=== PATIENT | female | born 1990 | race Caucasian/White ===

== ENCOUNTER 2016-11-02 13:11 | Emergency (ER) | payer BC ==
--- NOTE | 2016-11-02 13:36 | UC ---
Complaint Female HPI - HPI Summary HPI Summary: right side low back pain believes she has a kidney stone---her Tena Mcqueenr told here if pain returns to follow at urgent care or Ed for imagining - History Of Current Complaint Chief Complaint: UCGU Stated Complaint: RT LOWER BACK -KIDNEY? Time Seen by Provider: 11/02/16 13:35 Hx Obtained From: Patient ?: No Onset/Duration: Sudden Onset, Lasting Days - 2, Still Present Timing: Constant Severity Initially: Moderate Severity Currently: Moderate Pain Intensity: 6 Pain Scale Used: 0-10 Numeric Character: Dull, Colicy Aggravating Factor(s): Nothing Alleviating Factor(s): Nothing Associated Signs And Symptoms: Positive: Back Pain - Allergies/Home Medications Allergies/Adverse Reactions: Allergies Allergy/AdvReac Type Severity Reaction Status Date / Time Acetaminophen [From Percocet] Allergy Anaphylatic Verified 11/02/16 13:39 Shock Amoxicillin Allergy Vomiting Verified 11/02/16 13:39 Azithromycin Allergy Hives/Diff. Verified 11/02/16 13:39 Breathing/I tching Nitrofurantoin Allergy Vomiting Verified 11/02/16 13:39 [From Macrobid] Oxycodone [From Percocet] Allergy Anaphylatic Verified 11/02/16 13:39 Shock Penicillins [PCN] Allergy Vomiting Verified 11/02/16 13:39 Promethazine [From Phenergan] Allergy Hallucinati Verified 11/02/16 13:39 ons Sulfa Antibiotics Allergy Rash Verified 11/02/16 13:39 Home Medications: Home Medications ALPRAZolam TAB* [Xanax TAB*] 1 tab PO BID PRN 11/02/16 [History Confirmed ] Ciprofloxacin TAB* [Cipro 500 MG TAB*] 500 mg PO BID 11/02/16 [History Confirmed 11/02/16] Sertraline* [Zoloft*] 50 mg PO DAILY 11/02/16 [History Confirmed 11/02/16] PMH/Surg Hx/FS Hx/Imm Hx Previously Healthy: Yes GI/ History: Kidney Stones - Family History Known Family History: Positive: None Family History: no cardiovascular issues reported in family lineage - Social History Occupation: Employed Full-time Lives: With Family Alcohol Use: None Substance Use Type: None Smoking Status (MU): Never Smoked Tobacco Review of Systems Constitutional: Negative Skin: Negative Eyes: Negative ENT: Negative Respiratory: Negative Cardiovascular: Negative Gastrointestinal: Negative Genitourinary: Negative Motor: Negative Neurovascular: Negative Musculoskeletal: Negative, Arthralgia - right flank pain Neurological: Negative Psychological: Negative All Other Systems Reviewed And Are Negative: Yes Physical Exam Triage Information Reviewed: Yes Appearance: Well-Appearing, No Pain Distress, Well-Nourished Vital Signs: Initial Vital Signs Temp 98.0 F 11/02/16 13:29 Pulse 75 11/02/16 13:29 Resp 18 11/02/16 13:29 BP 123/65 11/02/16 13:29 Pulse Ox 100 11/02/16 13:29 Vital Signs Reviewed: Yes Eye Exam: Normal Eyes: Positive: Conjunctiva Clear ENT Exam: Normal ENT: Positive: Normal ENT inspection, Hearing grossly normal. Negative: Nasal congestion, Nasal drainage, Trismus, Muffled/hoarse voice Dental Exam: Normal Neck exam: Normal Neck: Positive: Supple, Nontender, No Lymphadenopathy Respiratory Exam: Normal Respiratory: Positive: Chest non-tender, Lungs clear, Normal breath sounds, No respiratory distress, No accessory muscle use Cardiovascular Exam: Normal Cardiovascular: Positive: RRR, No Murmur, Pulses Normal, Brisk Capillary Refill Abdominal Exam: Normal Abdomen Description: Positive: Nontender, No Organomegaly, Soft, CVA Tenderness (R). Negative: CVA Tenderness (L), Distended Bowel Sounds: Positive: Present Musculoskeletal Exam: Normal Musculoskeletal: Positive: Strength Intact, ROM Intact Neurological Exam: Normal Neurological: Positive: Alert, Muscle Tone Normal Psychological Exam: Normal Psychological: Positive: Normal Response To Family Skin Exam: Normal Diagnostics - Radiology No standard instances Xray Interpretation: Positive (See Comments) - multiple non-obstructive calculi Complaint Female Dx - Course Course Of Treatment: finish antibiodics, increase fluids, ibuprofen follow with Tena Thurman NP 2-3 days - Differential Dx/Diagnosis Differential Diagnosis/HQI/PQRI: Appendicitis, Ovarian Cyst, Ovarian Torsion, Pelvic Inflammatory Disease, Ureteral Stone, Urinary Tract Infection Provider Diagnoses: Non-Obstruction Renal Calculi, hematuria Discharge - Discharge Plan Condition: Stable Disposition: HOME Patient Education Materials: Urinary Tract Infection in Women (ED), Flank Pain (ED) Referrals: Tena Thurman, CLAUDETTE [Nurse Practitioner] - 2 Days
[2016-11-02] MEDS ORDERED: Ketorolac INJ* 60 MG/2 ML VIAL IM ONE (13:50)
--- NOTE | 2016-11-02 14:38 | RAD ---
Indication: Right renal colic. CT of the abdomen and pelvis was performed without oral or IV contrast administration. Coronal and sagittal reconstructed images were obtained. The lung bases demonstrate no pleural fluid, nodules or masses heart is of normal size without evidence of pericardial effusion. The liver is normal in size. No focal lesions or intrahepatic ductal dilatation is noted. The gallbladder demonstrates no calcified gallstones. No pericholecystic fluid or wall thickening is noted. The pancreas demonstrates no mass or pancreatic duct dilatation. The spleen is normal in size. No adrenal masses are noted. The kidneys demonstrates fullness of both renal collecting system. Nonobstructing calculi is noted in the lower pole of left kidney measuring 1 to 2 mm each. No hydroureter is noted. The urinary bladder is unremarkable. Phleboliths are seen in the pelvis. Uterus and ovaries are unremarkable. Aorta and inferior cava are unremarkable. No aorta demonstrates no abnormal dilatation. No retroperitoneal adenopathy is noted. No dilated loops of bowel are noted. Urinary bladder is unremarkable. IMPRESSION: NO DEFINITE EVIDENCE OF OBSTRUCTIVE UROPATHY IS NOTED ALTHOUGH MULTIPLE TINY CALCULI ARE NOTED IN BOTH RENAL COLLECTING SYSTEMS WHICH ARE NONOBSTRUCTING. LIKELY PHLEBOLITHS IN THE PELVIS WHICH IS FELT TO BE MEDIAL TO THE RIGHT URETEROVESICULAR JUNCTION.
== END 2016-11-02 15:09 | disposition home or self-care (01) ==
LOC: UCEAST 13:11
DX: N20.0 Calculus of kidney (principal); R31.9 Hematuria, unspecified; Z88.3 Allergy status to other anti-infective agents; Z88.6 Allergy status to analgesic agent; Z88.5 Allergy status to narcotic agent; Z88.0 Allergy status to penicillin; Z87.442 Personal history of urinary calculi
CPT/HCPCS: 74176; 81003; 84702; 87086; 96372; 99201; G0463; J1885

== ENCOUNTER 2017-01-08 11:06 | Emergency (ER) | payer BC ==
[2017-01-08 11:36] VITALS: BP 144/73
--- NOTE | 2017-01-08 11:38 | UC ---
Throat Pain/Nasal Kevyn HPI - HPI Summary HPI Summary: complaint of sore throat and headache that started this morning since this morning she has vomited small amounts today- last episode 10:30 diarrhea 1 hours ago bilateral ear pain fever that started this morning hasn't taken any medication today d/t vomiting - History of Current Complaint Chief Complaint: UCGeneralIllness Stated Complaint: FEVER, EAR PAIN Time Seen by Provider: 01/08/17 11:29 Hx Obtained From: Patient Hx Last Menstrual Period: IUD - Allergies/Home Medications Allergies/Adverse Reactions: Allergies Allergy/AdvReac Type Severity Reaction Status Date / Time Acetaminophen [From Percocet] Allergy Anaphylatic Verified 01/08/17 11:15 Shock Amoxicillin Allergy Vomiting Verified 11/02/16 13:39 Azithromycin Allergy Hives/Diff. Verified 11/02/16 13:39 Breathing/I tching Nitrofurantoin Allergy Vomiting Verified 11/02/16 13:39 [From Macrobid] Ondansetron [From Zofran] Allergy Hallucinati Verified 01/08/17 12:12 ons Oxycodone [From Percocet] Allergy Anaphylatic Verified 11/02/16 13:39 Shock Penicillins [PCN] Allergy Vomiting Verified 11/02/16 13:39 Promethazine [From Phenergan] Allergy Hallucinati Verified 11/02/16 13:39 ons Sulfa Antibiotics Allergy Rash Verified 11/02/16 13:39 Home Medications: Home Medications clonazePAM TAB(*) [Klonopin TAB(*)] 0.5 mg PO PRN 01/08/17 [History] PMH/Surg Hx/FS Hx/Imm Hx Previously Healthy: Yes - Surgical History Surgical History: Yes Surgery Procedure, Year, and Place: LEFT KNEE 2008 - Family History Known Family History: Positive: None Negative: Cardiac Disease, Hypertension, Diabetes Family History: no cardiovascular issues reported in family lineage - Social History Occupation: Employed Full-time Lives: With Family Alcohol Use: None Substance Use Type: None Smoking Status (MU): Current Every Day Smoker Review of Systems Constitutional: Fever Skin: Negative Eyes: Negative ENT: Sore Throat, Ear Ache Respiratory: Negative Cardiovascular: Negative Gastrointestinal: Negative Genitourinary: Negative Motor: Negative Neurovascular: Negative Musculoskeletal: Negative Neurological: Negative Psychological: Negative All Other Systems Reviewed And Are Negative: Yes Physical Exam Triage Information Reviewed: Yes Appearance: No Pain Distress, Well-Nourished, Ill-Appearing Vital Signs: Initial Vital Signs Temp 100.0 F 01/08/17 11:12 Pulse 86 01/08/17 11:12 Resp 16 01/08/17 11:12 BP 144/73 01/08/17 11:12 Pulse Ox 100 01/08/17 11:12 Vital Signs Reviewed: Yes Eyes: Positive: Conjunctiva Clear ENT: Positive: Pharyngeal erythema, Nasal drainage, TMs normal. Negative: Nasal congestion Dental: Positive: Cervical Lymphadenopathy Neck: Positive: Supple Respiratory: Positive: Lungs clear, Normal breath sounds, No respiratory distress, No accessory muscle use Cardiovascular: Positive: RRR, No Murmur, Pulses Normal, Brisk Capillary Refill Abdomen Description: Positive: Nontender, No Organomegaly, Soft. Negative: CVA Tenderness (R), CVA Tenderness (L) Bowel Sounds: Positive: Present Musculoskeletal: Positive: No Edema Neurological: Positive: Alert Psychological Exam: Normal Skin Exam: Normal Throat Pain/Nasal Course/Dx - Course Course Of Treatment: exam completed. negative for strep infection. symptomatic treatment for viral illness -has followup with PCP in 2 days - Differential Dx/Diagnosis Differential Diagnosis/HQI/PQRI: Pharyngitis, Tonsillitis, Other - viral illness Provider Diagnoses: viral illness Discharge - Discharge Plan Condition: Stable Disposition: HOME Patient Education Materials: Gastroenteritis (ED), Pharyngitis (ED) Forms: *Work Release Referrals: No Primary Care Phys,NOPCP [Medical Doctor] - Skip Willis MD [Medical Doctor] - Additional Instructions: Increase fluids and rest Take acetaminophen or ibuprofen for fever or pain Please review your discharge instructions. If your symptoms do not improve please call your primary care provider or return to urgent care.
[2017-01-08] MEDS ORDERED: Ibuprofen TAB* 400 MG PO ONE (12:11)
== END 2017-01-08 12:25 | disposition home or self-care (01) ==
LOC: UCEAST 11:06
DX: B34.9 Viral infection, unspecified (principal); Z97.5 Presence of (intrauterine) contraceptive device; Z88.6 Allergy status to analgesic agent; Z88.3 Allergy status to other anti-infective agents; Z88.5 Allergy status to narcotic agent; Z88.0 Allergy status to penicillin; Z88.2 Allergy status to sulfonamides; F17.210 Nicotine dependence, cigarettes, uncomplicated
CPT/HCPCS: 87651; 99212; A9270-GY; G0463

== ENCOUNTER 2017-01-30 09:38 | Day surgery (SDC) | payer BC ==
[~2017-01-30 09:38] MED LIST: Buffered Lidocaine 0.9% SYRIN* 5 ML/SYR SYRINGE INTRADERM ONE; Dexamethasone IV* 4 MG/ML 1 ML (4 MG) IV SLOW PU ONE; Famotidine IV* 10 MG/ML 2 ML (20 mg) IV ONE
[2017-01-30] MEDS ORDERED: Succinylcholine* 20 MG/ML 10 ML VIAL ONE (09:57)
[2017-01-30] MEDS ORDERED: Lidocaine 2% PF * 5 ML VIAL ONE (09:57)
[2017-01-30] MEDS ORDERED: Propofol* 10 MG/ML 20 ML BTL IV PUSH ONE (09:57)
[2017-01-30] MEDS ORDERED: fentaNYL* 50 MCG/ML 2 ML VIAL (100 MCG VIAL) ONE ×2 (09:57→11:28)
[2017-01-30] MEDS ORDERED: PROCHLORPERAZINE INJ 5 MG/ML 2 ML VIAL IV PRN (10:16)
[2017-01-30] MEDS ORDERED: Dexamethasone IV* 4 MG/ML 1 ML (4 MG) ONE (10:18)
[2017-01-30] MEDS ORDERED: Famotidine IV* 10 MG/ML 2 ML (20 mg) ONE (10:18)
[2017-01-30] MEDS ORDERED: Ondansetron INJ* 2 MG/ML VIAL ONE (10:45)
[2017-01-30] MEDS ORDERED: HYDROcodone/ACET. 7.5/325 LIQ* 15 ML UDC ONE (11:30)
[2017-01-30] MEDS: fentaNYL* 50 MCG/ML 2 ML VIAL (100 MCG VIAL) IV PRN ×2 (11:32→11:58)
[2017-01-30 12:34] VITALS: BP 108/50
--- NOTE | 2017-02-06 22:48 | OP ---
DATE OF OPERATION: 02/01/17 - [facility] DATE OF : [birth year] SURGEON: Demetrio Coates MD ANESTHESIOLOGIST: Emre Lanier MD ANESTHESIA: General PRE-OP DIAGNOSIS: Chronic tonsillitis. POST-OP DIAGNOSIS: Chronic tonsillitis. OPERATIVE PROCEDURE: Tonsillectomy. BRIEF HISTORY: This pleasant 26-year-old female with chronic recurring tonsillitis has elected for surgical management. DESCRIPTION OF PROCEDURE: The patient was taken to the operating room, general anesthetic was given, the patient was intubated. Tongue, mandible, and soft palate were retracted. Coblator was used to remove the tonsils. Once hemostasis was obtained, the patient was awakened and sent to recovery room in stable condition. Instrument and sponge count correct. [id number]/CPS #: [id number] MTDD
== END 2017-01-30 13:38 | disposition home or self-care (01) ==
LOC: OR 09:38
PROVIDERS: ATTEND Otolaryngology
DX: J35.01 Chronic tonsillitis (principal); J45.909 Unspecified asthma, uncomplicated; F17.210 Nicotine dependence, cigarettes, uncomplicated
CPT/HCPCS: 81025; 88304; J0330; J1100; J2405; J2704; J3010

== ENCOUNTER 2017-11-17 08:06 | Emergency (ER) | payer BC ==
[2017-11-17 08:22] VITALS: BP 122/71
[2017-11-17] MEDS ORDERED: Albuterol/Ipratropium NEB.SOL* Albuterol 2.5 MG/Ipratropium 0.5 MG 3 ML INH ONE (08:27)
[2017-11-17] MEDS ORDERED: predniSONE TAB* 20 MG PO ONE (08:27)
--- NOTE | 2017-11-17 08:40 | UC ---
Respiratory Complaint HPI - HPI Summary HPI Summary: patient has had increase URI symtpoms, feels liker her chest is tight and cannot take a deep breath. ear pressure, patient is a smoker - History of Current Complaint Chief Complaint: UCGeneralIllness Stated Complaint: URI Time Seen by Provider: 11/17/17 08:23 Hx Obtained From: Patient Hx Last Menstrual Period: 11/01/17 ?: No Onset/Duration: Gradual Onset, Lasting Days Timing: Constant Severity Initially: Mild Severity Currently: Moderate Pain Intensity: 0 Character: Cough: Nonproductive Aggravating Factors: Allergens, Exertion, Deep Breaths Alleviating Factors: Bronchodilator Associated Signs And Symptoms: Positive: Dyspnea, Wheezing, URI - Allergies/Home Medications Allergies/Adverse Reactions: Allergies Allergy/AdvReac Type Severity Reaction Status Date / Time acetaminophen [From Percocet] Allergy Anaphylatic Verified 11/17/17 08:26 Shock azithromycin Allergy Hives/Diff. Verified 11/17/17 08:26 Breathing/I tching oxycodone [From Percocet] Allergy Anaphylatic Verified 11/17/17 08:26 Shock Sulfa (Sulfonamide Allergy Rash Verified 11/17/17 08:26 Antibiotics) amoxicillin AdvReac Vomiting Verified 11/17/17 08:26 nitrofurantoin AdvReac Vomiting Verified 11/17/17 08:26 [From Macrobid] ondansetron [From Zofran] AdvReac Hallucinati Verified 11/17/17 08:26 ons Penicillins AdvReac Vomiting Verified 11/17/17 08:26 promethazine [From Phenergan] AdvReac Hallucinati Verified 11/17/17 08:26 ons Home Medications: Home Medications Albuterol HFA INHALER* [Ventolin HFA Inhaler*] 2 puff INH Q4H PRN 11/17/17 [ History Confirmed 11/17/17] Hylagan Inections 11/17/17 [History] LORazepam TAB(*) [Ativan 1 MG TAB (*)] 1 mg PO DAILY PRN 11/17/17 [History Confirmed 11/17/17] Meloxicam(NF) [Mobic(NF)] 7.5 mg PO BID PRN 11/17/17 [History Confirmed 11/17/17 ] PMH/Surg Hx/FS Hx/Imm Hx Previously Healthy: Yes - Surgical History Surgical History: Yes Surgery Procedure, Year, and Place: LEFT KNEE SCOPING 2007. tonsillectomy January 2017 - Family History Known Family History: Positive: None Negative: Cardiac Disease, Hypertension, Diabetes Family History: no cardiovascular issues reported in family lineage - Social History Alcohol Use: Rare Substance Use Type: None Smoking Status (MU): Current Every Day Smoker Amount Used/How Often: 1/2 PPD Review of Systems Constitutional: Negative Skin: Negative Eyes: Negative ENT: Ear Ache Respiratory: Shortness Of Breath, Cough Cardiovascular: Negative Gastrointestinal: Negative Genitourinary: Negative Motor: Negative Neurovascular: Negative Musculoskeletal: Negative Neurological: Headache Psychological: Negative Is Patient Immunocompromised?: No All Other Systems Reviewed And Are Negative: Yes Physical Exam Triage Information Reviewed: Yes Appearance: Well-Nourished, Ill-Appearing, Pain Distress Vital Signs: Initial Vital Signs Temp 98 F 11/17/17 08:14 Pulse 90 11/17/17 08:14 Resp 16 11/17/17 08:14 BP 122/71 11/17/17 08:14 Pulse Ox 97 11/17/17 08:14 Vital Signs Reviewed: Yes Eye Exam: Normal ENT: Positive: Pharyngeal erythema, TM bulging Dental Exam: Normal Neck exam: Normal Neck: Positive: Supple, Nontender, No Lymphadenopathy Respiratory Exam: Normal Respiratory: Positive: Chest non-tender, No respiratory distress, Wheezing, Inspiration Cardiovascular Exam: Normal Cardiovascular: Positive: RRR, No Murmur, Pulses Normal Abdominal Exam: Normal Abdomen Description: Positive: Nontender, No Organomegaly, Soft Bowel Sounds: Positive: Present Musculoskeletal Exam: Normal Musculoskeletal: Positive: Strength Intact, ROM Intact, No Edema Neurological Exam: Normal Neurological: Positive: Alert, Muscle Tone Normal Psychological Exam: Normal Skin Exam: Normal UC Diagnostic Evaluation - Laboratory O2 Sat by Pulse Oximetry: 97 Respiratory Course/Dx - Course Course Of Treatment: hx obtained, exam performed ,meds reviewed, neb treatment given, prednisone given and prescirbed. treated for URI - Differential Dx/Diagnosis Differential Diagnosis/HQI/PQRI: Asthma, Bronchitis, Exacerbation Of COPD, Lower Resp Infection, Sinusitis Provider Diagnoses: acute bronchtitis. tobacco use Discharge - Sign-Out/Discharge Documenting (check all that apply): Discharge/Admit/Transfer - Discharge Plan Condition: Stable Disposition: HOME Patient Education Materials: Acute Bronchitis (ED), Bronchospasm (ED) Referrals: Madison Carreno MD [Primary Care Provider] - Additional Instructions: 1. take the medication as prescribed. 2. COntinue with albuterol as needed. 3. Use the zyrtec daily for the next month - Billing Disposition and Condition Condition: STABLE Disposition: Home
== END 2017-11-17 08:45 | disposition home or self-care (01) ==
LOC: UCEAST 08:06
DX: J20.9 Acute bronchitis, unspecified (principal); Z88.6 Allergy status to analgesic agent; Z88.1 Allergy status to other antibiotic agents; Z88.5 Allergy status to narcotic agent; Z88.0 Allergy status to penicillin; Z88.2 Allergy status to sulfonamides; Z88.8 Allergy status to other drugs, medicaments and biological substances; F17.210 Nicotine dependence, cigarettes, uncomplicated
CPT/HCPCS: 99212; A9270-GY; G0463; J7512

== ENCOUNTER 2017-12-01 17:41 | Emergency (ER) | payer SELFPAY ==
[2017-12-01 18:13] VITALS: BP 111/59
[2017-12-01] MEDS ORDERED: Tetan/Diph/Pertus SYR(Tdap)* 0.5 ML SYR(BOOSTRIX) use SYR IM ONE (18:42)
--- NOTE | 2017-12-01 18:59 | UC ---
Laceration HPI - HPI Summary HPI Summary: WAS slicing george this evening with a mandolin and sliced a layer of her 3rd finger right hand. Does not know when the last Td vaccine was. LMD is today. Denies pain, states she can move her finger as usual. - History Of Current Complaint Chief Complaint: UCLaceration Stated Complaint: FINGER LACERATION Time Seen by Provider: 12/01/17 17:44 Hx Obtained From: Patient Hx Last Menstrual Period: now Laceration Location: Finger Onset/Duration: Sudden Onset, Lasting Hours Severity: Moderate Pain Intensity: 4 Aggravating Factors: Movement - Allergies/Home Medications Allergies/Adverse Reactions: Allergies Allergy/AdvReac Type Severity Reaction Status Date / Time acetaminophen [From Percocet] Allergy Anaphylatic Verified 12/01/17 18:13 Shock azithromycin Allergy Hives/Diff. Verified 12/01/17 18:13 Breathing/I tching oxycodone [From Percocet] Allergy Anaphylatic Verified 12/01/17 18:13 Shock Sulfa (Sulfonamide Allergy Rash Verified 12/01/17 18:13 Antibiotics) amoxicillin AdvReac Vomiting Verified 12/01/17 18:13 nitrofurantoin AdvReac Vomiting Verified 12/01/17 18:13 [From Macrobid] ondansetron [From Zofran] AdvReac Hallucinati Verified 12/01/17 18:13 ons Penicillins AdvReac Vomiting Verified 12/01/17 18:13 promethazine [From Phenergan] AdvReac Hallucinati Verified 12/01/17 18:13 ons PMH/Surg Hx/FS Hx/Imm Hx Respiratory History: Asthma Psychological History: Depression - Surgical History Surgical History: Yes Surgery Procedure, Year, and Place: LEFT KNEE SCOPING 2007 [place]. tonsillectomy January 2017 - Family History Known Family History: Positive: None Negative: Cardiac Disease, Hypertension, Diabetes Family History: no cardiovascular issues reported in family lineage - Social History Alcohol Use: None Substance Use Type: None Smoking Status (MU): Current Every Day Smoker Amount Used/How Often: 1/2 PPD - Immunization History Most Recent Tetanus Shot: unknown Review of Systems Constitutional: Negative Musculoskeletal: Other: - pain in finger All Other Systems Reviewed And Are Negative: Yes Physical Exam Triage Information Reviewed: Yes Appearance: Well-Appearing, No Pain Distress, Obese Vital Signs: Initial Vital Signs Temp 98.2 F 07/01/18 18:09 Pulse 68 12/01/17 18:09 Resp 12 12/01/17 18:09 BP 111/59 12/01/17 18:09 Pulse Ox 100 12/01/17 18:09 Vital Signs Reviewed: Yes Eyes: Positive: Conjunctiva Clear ENT: Positive: Hearing grossly normal Neck: Positive: Supple Respiratory: Positive: Chest non-tender Cardiovascular: Positive: Pulses Normal, Brisk Capillary Refill Abdomen Description: Positive: Nontender Skin Exam: Other - shaving of skin proximal to DIP joint 3rd right finger, no bleeding, no d/c, no bruising. Finger FROM with extension/flexion preserved, distal pulses present, capillary refill brisk. Laceration Repair - Laceration Repair 1 Description: Irregular Laceration Size After Repair: Length (cm) - 0.4cm, Width (mm) - 0.3 cm Modified For Repair: No Cleansing Completed Via Routine Prep: Yes Laceration Course/Dx - Course/Dx Course Of Treatment: Skin was shaved as described from finger, wound was cleansed and dressing with bacitracin applied. Tdap administered. Follow up with PCP in 1 week - Differential Dx - Laceration/Wound Provider Diagnoses: Skin abrassion 3rd finger right hand Discharge - Sign-Out/Discharge Documenting (check all that apply): Discharge/Admit/Transfer - Discharge Plan Condition: Good Disposition: HOME Patient Education Materials: Bacitracin/Neomycin/Polymyxin B (On the skin), Finger Laceration (ED) Referrals: Madison Carreno MD [Primary Care Provider] - - Billing Disposition and Condition Condition: GOOD Disposition: Home Images Hands: 1 - skin shaving 4x3mm no bleeding, no disruption of fascia
== END 2017-12-01 18:59 | disposition home or self-care (01) ==
LOC: UCEAST 17:41
DX: S61.212A Laceration without foreign body of right middle finger without damage to nail, initial encounter (principal); S60.412A Abrasion of right middle finger, initial encounter; W26.8XXA Contact with other sharp object(s), not elsewhere classified, initial encounter; F17.210 Nicotine dependence, cigarettes, uncomplicated; Z88.5 Allergy status to narcotic agent; Z88.1 Allergy status to other antibiotic agents; Z88.2 Allergy status to sulfonamides; Z88.0 Allergy status to penicillin; Z88.8 Allergy status to other drugs, medicaments and biological substances; Y93.89 Activity, other specified; Y92.9 Unspecified place or not applicable
CPT/HCPCS: 12001; 90471; 90715; 99211; G0463

== ENCOUNTER 2018-01-20 21:08 | Emergency (ER) | payer SELFPAY ==
--- OUTSIDE RECORDS SUMMARY | 2018-01-20 21:14 | XMS REPORT ---
:1990 External Reference #:[id number] Author Organization [facility] Address [address] [place] [address] Phone [phone] Care Team Providers Name Role Phone Lola Thurman NP Care Team Information Material Mover Unavailable Madison Carreno MD Primary Care Physician Unavailable Payers Type Date Identification Numbers Payment Provider Subscriber Commercial Policy Number: [id number] [facility] Nargis Marisol Molina PayID: [id number] [address] [address] [place] [address] Problems Date Description Provider Status Onset: 12/20/2017 Uncomplicated moderate persistent Khadra Cloud NP Active asthma Onset: 12/20/2017 Allergic rhinitis Khadra Cloud NP Active Onset: 12/20/2017 Allergic rhinitis due to pollen Khadra Cloud NP Active Onset: 12/18/2017 Allergy status to penicillin Tony Valentino MD Active Social History Type Date Description Comments Smoke-Free Home is not smoke-free Pets None Smoking Light tobacco smoker (10 or fewer in process of quitting cigarettes/day) Allergies, Adverse Reactions, Alerts Date Description Reaction Status Severity Comments 12/18/2017 Amoxicillin active 12/18/2017 Penicillin active 12/18/2017 Sulfa Antibiotics active 12/18/2017 Phenergan active 12/18/2017 Percocet active 12/18/2017 Azithromycin active 12/18/2017 Macrobid active Medications Medication Date Status Form Strength Qnty SIG Indications Ordering Provider Ventolin HFA 12/18 Active Aerosol 108(90Bas 8gm inhale 2 e) puffs by Maciej Valentino MD mcg/Act inhalation route every 4 hours as needed Montelukast 00/00 Active Tablets 10mg take one Unknown Sodium /0000 tablet by mouth daily in the evening Lorazepam Active Tablets 1mg 1 by mouth Unknown /0000 as needed Meloxicam Active Tablets 7.5mg take one Unknown /0000 tab twice daily as needed for pain, avoid other nsaids Sertraline Active Tablets 50mg 2 tabs once Unknown HCL /0000 a day Ranitidine Active Tablets 150mg Unknown HCL /0000 Advair HFA Active Aerosol 115-21mcg 2 puffs Unknown /0000 /Act twice daily Mometasone Active Suspension 50mcg/Act instill 2 Unknown Furoate /0000 sprays into each nostril once daily Yisel Active Tablets 180mg 2 tab Unknown Allergy /0000 everyday as needed Medications Administered in Office Medication Date Status Form Strength Qnty SIG Indications Ordering Provider Allergy 01/17/ Administered Injection Christopher Injection 2 2017 Maciej Valentino MD Or More Allergy 12/27/ Administered Injection Christopher Injection 2 2017 Maciej Valentino MD Or More Vital Signs Date Vital Result Comment 01/17/2018 BP Systolic 120 mmHg BP Diastolic 93 mmHg Height 65 inches 5'5" Weight 204.00 lb BMI (Body Mass Index) 33.9 kg/m2 Heart Rate 75 /min Respiratory Rate 18 /min Body Temperature 98.0 F O2 % BldC Oximetry 98 % 12/20/2017 BP Systolic 138 mmHg BP Diastolic 96 mmHg Height 65 inches 5'5" Weight 204.50 lb BMI (Body Mass Index) 34.0 kg/m2 Heart Rate 72 /min Respiratory Rate 18 /min Body Temperature 98.3 F O2 % BldC Oximetry 97 % 12/18/2017 BP Systolic 108 mmHg BP Diastolic 68 mmHg Height 64 inches 5'4" Weight 204.00 lb BMI (Body Mass Index) 35.0 kg/m2 Heart Rate 96 /min Respiratory Rate 18 /min Body Temperature 96.3 F O2 % BldC Oximetry 96 % Results Test Date Test Result H/L Range Note Order 12/18/2017 Intradermal Drug/Venom <pending> Procedures Date CPT Code Description Status 01/17/2018 11540 Allergy Injection 2 Or More Completed 12/27/2017 15501 Allergy Injection 2 Or More Completed 12/25/2017 05877 Allergy Antigens Single Or Multiple Completed 12/20/2017 72358 Allergy Tests Percutaneous W/ Allergenic Extracts Completed 12/20/2017 71078 Allergy Tests Percutaneous W/ Allergenic Extracts Completed 12/18/2017 11510 Allergy Testing Any Combination Percutaneous W/Venom Completed Encounters Type Date Location Provider CPT E/M Dx Office Visit 12/20/2017 9:00[place] [id number] J30.1 J30.89 J45.40 Office Visit 12/18/2017 3:00p [place] [address] Z88.0 Plan of Care 12/20/2017 - Khadra Cloud NPJ30.1 Allergic rhinitis due to pollenComments: Patient presents with allergic rhinitis, continue with mometasone 50 mcg 07/04, Yisel 190 mg daily.Skin testing for S+E performed today and she was positive to all 59 allergens, 2+ and 4 to dust mites.I discussed avoidance, patient lives in a tailor and did report that when she moved in there was a washing everything in respect of these kids of cat hair. This most likely was a strong trigger. I alsodiscussed and review all of her medications, She is interested in starting immunotherapy. She will follow up in one month for PFT and NiOx testing.J30.89 Other allergic tawjpzalA17.40 Moderate persistent asthma, uncomplicated
[2018-01-20 21:26] VITALS: BP 111/58
--- NOTE | 2018-01-20 21:37 | ED ---
Lower Extremity - HPI Summary HPI Summary: 27 year female presents with right leg pain since yesterday. She states yesterday she fell and landed with her right leg underneath her. She states she feels a pull in her a quad. States she is able to ambulate. No numbness or tingling. She states her pain is in her anterior thigh. no previous injury to the area. no other injury. works at [employer]. is going on vacation on sat. - History of Current Complaint Chief Complaint: UCLowerExtremity Stated Complaint: LEG INJURY Time Seen by Provider: 01/20/18 21:29 Hx Last Menstrual Period: 12/29/17 Pain Intensity: 5 - Allergies/Home Medications Allergies/Adverse Reactions: Allergies Allergy/AdvReac Type Severity Reaction Status Date / Time acetaminophen [From Percocet] Allergy Anaphylatic Verified 01/20/18 21:26 Shock azithromycin Allergy Hives/Diff. Verified 01/20/18 21:26 Breathing/I tching oxycodone [From Percocet] Allergy Anaphylatic Verified 01/20/18 21:26 Shock Sulfa (Sulfonamide Allergy Rash Verified 01/20/18 21:26 Antibiotics) amoxicillin AdvReac Vomiting Verified 01/20/18 21:26 nitrofurantoin AdvReac Vomiting Verified 01/20/18 21:26 [From Macrobid] ondansetron [From Zofran] AdvReac Hallucinati Verified 01/20/18 21:26 ons Penicillins AdvReac Vomiting Verified 01/20/18 21:26 promethazine [From Phenergan] AdvReac Hallucinati Verified 01/20/18 21:26 ons Home Medications: Home Medications Fluticasone Propionate [Flovent Hfa] 01/20/18 [History] Mometasone NASAL (NF) [Nasonex (NF)] 01/20/18 [History] Montelukast Sodium TAB* [Singulair 5 mg TAB*] 01/20/18 [History] Ranitidine TAB (NF) [Zantac TAB (NF)] 01/20/18 [History] PMH/Surg Hx/FS Hx/Imm Hx Endocrine/Hematology History: Reports: Hx Anemia - HX OF NONE RECENTLY Denies: Hx Diabetes Cardiovascular History: Denies: Hx Hypertension Respiratory History: Reports: Hx Asthma - A CHILD Denies: Hx Chronic Obstructive Pulmonary Disease (COPD) History: Reports: Hx Kidney Stones - RIGHT URTERAL STONES Sensory History: Reports: Hx Contacts or Glasses - GLASSES Denies: Hx Hearing Aid Opthamlomology History: Reports: Hx Contacts or Glasses - GLASSES Psychiatric History: Reports: Hx Anxiety - ON MEDS PT. STATES CONTROLLED, Hx Depression - ON MEDS PT. STATES CONTROLLED - Surgical History Surgery Procedure, Year, and Place: LEFT KNEE SCOPING 2007 [place]. tonsillectomy January 2017 Hx Anesthesia Reactions: No Infectious Disease History: No Infectious Disease History: Denies: Hx Hepatitis, Traveled Outside the [place] in Last 30 Days - Family History Known Family History: Positive: None Negative: Cardiac Disease, Hypertension, Diabetes Family History: no cardiovascular issues reported in family lineage - Social History Alcohol Use: None Substance Use Type: Reports: None Smoking Status (MU): Current Every Day Smoker Amount Used/How Often: 1/2 PPD Review of Systems Negative: Fever Negative: Chest Pain Negative: Shortness Of Breath Positive: Myalgia - right leg pain All Other Systems Reviewed And Are Negative: Yes Physical Exam Triage Information Reviewed: Yes Vital Signs On Initial Exam: Initial Vitals Temp Pulse Resp BP Pulse Ox 98.7 F 76 16 111/58 100 01/20/18 21:20 01/20/18 21:20 01/20/18 21:20 01/20/18 21:20 01/20/18 21:20 Vital Signs Reviewed: Yes Appearance: Positive: Well-Appearing Skin: Positive: Warm, Dry Head/Face: Positive: Normal Head/Face Inspection Eyes: Positive: Normal, Conjunctiva Clear ENT: Positive: Pharynx normal Respiratory/Lung Sounds: Positive: Clear to Auscultation, Breath Sounds Present Cardiovascular: Positive: Normal, RRR Musculoskeletal: Positive: Strength/ROM Intact - right leg, Other - tenderness right thigh, good pulses, sensation grossly intact. Negative: Edema Right Neurological: Positive: Normal Psychiatric: Positive: Normal Diagnostics - Vital Signs Vital Signs Temp Pulse Resp BP Pulse Ox 01/20/18 21:20 98.7 F 76 16 111/58 100 - Laboratory Lab Statement: Any lab studies that have been ordered have been reviewed, and results considered in the medical decision making process. Lower Extremity Course/Dx - Course Course Of Treatment: 27 year female presents with right leg pain since yesterday. She states yesterday she fell and landed with her right leg underneath her. She states she feels a pull in her a quad. States she is able to ambulate. No numbness or tingling. She states her pain is in her anterior thigh. no previous injury to the area. no other injury. on exam has tenderness right quad. neurovascular intact. explained not broken as can ambulate. will give crutches so can stay of leg as much as can tolerate. patient understand and agrees with plan. - Diagnoses Differential Diagnosis/HQI/PQRI: Positive: Fracture (Closed), Sprain, Strain Provider Diagnoses: Right leg pain Discharge - Sign-Out/Discharge Documenting (check all that apply): Patient Departure All imaging exams completed and their final reports reviewed: No Studies - Discharge Plan Condition: Good Disposition: HOME Patient Education Materials: Leg Sprain (ED) Referrals: Madison Carreno MD [Primary Care Provider] - Additional Instructions: Stay off leg as much as possible Ice, elevate, take normal pain medication Follow up with ortho if no improvement Return to ED if develop or any new or worsening symptoms - Billing Disposition and Condition Condition: GOOD Disposition: Home
== END 2018-01-20 22:00 | disposition home or self-care (01) ==
LOC: UCEAST 21:08
DX: M79.604 Pain in right leg (principal); W19.XXXA Unspecified fall, initial encounter; Y93.9 Activity, unspecified; Y92.9 Unspecified place or not applicable; Z88.0 Allergy status to penicillin; Z88.1 Allergy status to other antibiotic agents; Z88.6 Allergy status to analgesic agent; Z88.8 Allergy status to other drugs, medicaments and biological substances; F17.210 Nicotine dependence, cigarettes, uncomplicated
CPT/HCPCS: 99213; G0463

== ENCOUNTER 2018-02-13 18:51 | Emergency (ER) | payer BC ==
--- OUTSIDE RECORDS SUMMARY | 2018-02-13 18:56 | XMS REPORT ---
:1990 External Reference #:[id number] Author Organization [facility] Address [address] [place] [address] Phone [phone] Care Team Providers Name Role Phone Lola Thurman NP Care Team Information Clinical Review Specialist Unavailable Madison Carreno MD Primary Care Physician Unavailable Payers Type Date Identification Numbers Payment Provider Subscriber Commercial Policy Number: [id number] [facility] Nargis Marisol Molina PayID: [id number] [address] [address] [place] [address] Problems Date Description Provider Status Onset: 12/20/2017 [...] Form Strength Qnty SIG Indications Ordering Provider Xyzal Allergy 01/17 Active Tablets 5mg 30tab take 1 Khadra 24HR s tablet (5 Cloud, [employer] OPERATIONS [employer] TRAINING mg) by oral route once daily as needed Flovent HFA 01/17 Active Aerosol 110mcg/Ac 1unit ii Khadra /2017 t s inhalation CLAUDETTE Cloud twice daily Ventolin HFA 12/18 Active Aerosol 108(90Bas 8gm inhale 2 Christoph e) puffs by Maciej Valentino MD mcg/Act inhalation route every 4 hours as needed Montelukast Active Tablets 10mg take one Unknown Sodium /0000 tablet by mouth daily in the evening Lorazepam Active Tablets 1mg 1 by mouth Unknown /0000 as needed Meloxicam Active Tablets 7.5mg take one Unknown /0000 tab twice daily as needed for pain, avoid other nsaids Sertraline Active Tablets 50mg 2 tabs once Unknown HCL /0000 a day Ranitidine Active Tablets 150mg Unknown HCL /0000 Mometasone Active Suspension 50mcg/Act instill 2 Unknown Furoate /0000 sprays into each nostril once daily Advair HFA Hx Aerosol 115-21mcg 2 puffs Unknown /0000 /Act twice daily - 01/17 Yisel Hx Tablets 180mg 2 tab Unknown Allergy /0000 everyday as - needed 01/17 Medications Administered in Office Medication Date Status [...] <pending> Procedures Date CPT Code Description Status 01/23/2018 05277 Nitric Oxide Gas Determination Completed 01/23/2018 11557 Bronchodilation Responsiveness Spirometry Pre/Post Completed Bronchodil Adm 01/17/2018 60238 Allergy Injection 2 Or More Completed 01/17/2018 17945 Nitric Oxide Gas Determination Completed 01/17/2018 87008 Bronchodilation Responsiveness Spirometry Pre/Post Completed Bronchodil Adm 12/27/2017 93542 Allergy Injection 2 Or More Completed 12/25/2017 11102 Allergy Antigens Single Or Multiple Completed 12/20/2017 59962 Allergy Tests Percutaneous W/ Allergenic Extracts Completed 12/20/2017 22277 Allergy Tests Percutaneous W/ Allergenic Extracts Completed 12/18/2017 80952 Allergy Testing Any Combination Percutaneous W/Venom Completed Encounters Type Date Location Provider CPT E/M Dx Office Visit 12/20/2017 9:00a [place] [address] J30.1 J30.89 J45.40 Office Visit 12/18/2017 3:00p [place] [address] Z88.0 Plan of Care Future Appointment(s):02/21/2018 1:00 pm - [facility] at [email or web address]/17/2018 - Khadra Cloud NPJ45.40 Moderate persistent asthma, uncomplicatedComments: Patient presents today with persistent symptoms of asthma with increased coughing and audible wheezing particularly in the morning. We did review avoidance of allergens in the bedroom, she reports that it is dust free she cleans it frequently does not believe there is anything in her triggering her asthma. PFT revealed small airway constriction with FEF 25 7554 and post study at 75 showing reversibility. The patient has been a B switch to Flovent 110mcg/ 2 inhalations twice daily. She has Ventolin for rescue inhaler as needed. NiOx study was 5 PPD. Patient will follow up in 1 month for reevaluation.J30.89 Other allergic rhinitis
[2018-02-13 19:22] VITALS: BP 107/64
--- NOTE | 2018-02-13 19:37 | UC ---
Back Pain HPI - HPI Summary HPI Summary: awoke today with bilateral flank pain. hx. of kidney stones inthe past. no nausea or vomiting this time. hx. of diaphoresis at home , did not check temperature - History of Current Complaint Chief Complaint: UCBackPain Stated Complaint: low back pain Time Seen by Provider: 02/13/18 19:27 Hx Obtained From: Patient Hx Last Menstrual Period: 3 WEEKS AGO Onset/Duration: Sudden Onset Timing: Constant Severity Initially: Moderate Severity Currently: Moderate Pain Intensity: 7 Character: Dull, Throbbing Aggravating Factor(s): Nothing Alleviating Factor(s): OTC Meds Associated Signs And Symptoms: Positive: Negative - Risk Factors AAA Risk Factors: Negative TAD Risk Factors: Negative Cauda Equina Risk Factors: Negative Epidural Abscess Risk Factors: Negative - Allergies/Home Medications Allergies/Adverse Reactions: Allergies Allergy/AdvReac Type Severity Reaction Status Date / Time azithromycin Allergy Hives/Diff. Verified 02/13/18 19:23 Breathing/I tching oxycodone [From Percocet] Allergy Anaphylatic Verified 02/13/18 19:23 Shock Sulfa (Sulfonamide Allergy Rash Verified 02/13/18 19:23 Antibiotics) amoxicillin AdvReac Vomiting Verified 02/13/18 19:23 nitrofurantoin AdvReac Vomiting Verified 02/13/18 19:23 [From Macrobid] ondansetron [From Zofran] AdvReac Hallucinati Verified 02/13/18 19:23 ons Penicillins AdvReac Vomiting Verified 02/13/18 19:23 promethazine [From Phenergan] AdvReac Hallucinati Verified 02/13/18 19:23 ons Home Medications: Home Medications Levocetirizine Dihydrochloride [Xyzal] 02/13/18 [History] PMH/Surg Hx/FS Hx/Imm Hx Previously Healthy: Yes GI/ History: Kidney Stones - multiple nonobstructing stones in the past, Other - hx of kidney stones in the past Other GI/ History: multiple nonobstructing stones in the past - Surgical History Surgical History: Yes Surgery Procedure, Year, and Place: LEFT KNEE SCOPING 2007. tonsillectomy January 2017 - Family History Known Family History: Positive: None Negative: Cardiac Disease, Hypertension, Diabetes Family History: no cardiovascular issues reported in family lineage - Social History Alcohol Use: None Substance Use Type: None Smoking Status (MU): Current Every Day Smoker Type: Cigarettes Amount Used/How Often: 1/ PPD - Immunization History Most Recent Tetanus Shot: unknown Review of Systems Constitutional: Chills, Fatigue Skin: Negative Eyes: Negative ENT: Negative Respiratory: Other - hx. of asthma Genitourinary: Negative Motor: Negative Neurovascular: Negative Musculoskeletal: Negative Neurological: Negative Psychological: Negative Is Patient Immunocompromised?: No All Other Systems Reviewed And Are Negative: Yes Physical Exam Triage Information Reviewed: Yes Vital Signs: Initial Vital Signs Temp 36.1 C 02/13/18 19:19 Pulse 96 02/13/18 19:19 Resp 16 02/13/18 19:19 BP 107/64 02/13/18 19:19 Pulse Ox 100 02/13/18 19:19 Back Pain Course/Dx - Differential Dx/Diagnosis Provider Diagnoses: urinary tract infection vs renal calculi Discharge - Sign-Out/Discharge Documenting (check all that apply): Patient Departure All imaging exams completed and their final reports reviewed: Yes - Discharge Plan Condition: Good Disposition: HOME Prescriptions: Ciprofloxacin HCl [Cipro 500 MG TAB] 500 mg PO BID #10 tablet Patient Education Materials: Urinary Tract Infection in Women (ED) Referrals: Madison Carreno MD [Primary Care Provider] - Additional Instructions: follow up ultrasound as soon as possible - Billing Disposition and Condition Condition: GOOD Disposition: Home
--- NOTE | 2018-02-15 18:33 | UC ---
- Progress Note Progress Note: 02/16/2008 Urine culture returned negative, no growth. Pt Rx Ciprofloxacin PO to alleviate symptoms. Please call back PT and notified of results and advised to stop Antibiotic. Thank you Nicole Acosta PA-C Discharge - Sign-Out/Discharge Documenting (check all that apply): Patient Departure - D/c home All imaging exams completed and their final reports reviewed: Yes - Discharge Plan Condition: Good Disposition: HOME Prescriptions: Ciprofloxacin HCl [Cipro 500 MG TAB] 500 mg PO BID #10 tablet Patient Education Materials: Urinary Tract Infection in Women (ED) Referrals: Madison Carreno MD [Primary Care Provider] - Additional Instructions: follow up ultrasound as soon as possible - Billing Disposition and Condition Condition: GOOD Disposition: Home
== END 2018-02-13 20:18 | disposition home or self-care (01) ==
LOC: UCEAST 18:51
DX: R10.9 Unspecified abdominal pain (principal); F17.210 Nicotine dependence, cigarettes, uncomplicated; Z87.442 Personal history of urinary calculi; Z88.3 Allergy status to other anti-infective agents; Z88.2 Allergy status to sulfonamides; Z88.0 Allergy status to penicillin; Z88.8 Allergy status to other drugs, medicaments and biological substances
CPT/HCPCS: 81003; 87086; 99212; G0463

== ENCOUNTER 2018-03-11 16:08 | Emergency (ER) | payer BC, OTHER ==
--- OUTSIDE RECORDS SUMMARY | 2018-03-11 16:19 | XMS REPORT | Continuity of Care Document ---
:1990 External Reference #:[id number] Author Name Louise Roman Care Team Providers Name Role Phone Lola Thurman NP Care Team Information Boat Tester Unavailable Madison Carreno MD Primary Care Physician Unavailable Payers Type Date Identification Numbers Payment Provider Subscriber Policy Number: [id number] [facility] Melus Marisol Molina PayID: [id number] [address] [address] [place] [address] Advance Directives Description No Information Available Problems Date Description Provider Status Onset: 12/20/2017 Uncomplicated moderate persistent Khadra Cloud NP Active asthma Onset: 12/20/2017 Allergic rhinitis Khadra Cloud NP Active Onset: 12/20/2017 Allergic rhinitis due to pollen Khdara Cloud NP Active Onset: 12/18/2017 Allergy status to penicillin Tony Valentino MD Active Family History Description No Information Available Social History Type Date Description Comments Sex Unknown Tobacco Use Start: Unknown Home is not smoke-free Pets None Tobacco Use Start: Unknown Light tobacco smoker (10 or in process of quitting fewer cigarettes/day) Smoking Status Reviewed: 02/21/18 Light tobacco smoker (10 or in process of quitting fewer cigarettes/day) Allergies, Adverse Reactions, Alerts Date Description Reaction Status Severity Comments 12/18/2017 Amoxicillin Active 12/18/2017 Penicillin Active 12/18/2017 Sulfa Antibiotics Active 12/18/2017 Phenergan Active 12/18/2017 Percocet Active 12/18/2017 Azithromycin Active 12/18/2017 Macrobid Active Medications Medication Date Status Form Strength Qnty SIG Indications Ordering Provider Xyzal Allergy 01/17 Active Tablets 5mg 30tab take 1 Khadra 24HR s tablet (5 Cloud, CLIENT CONSULTANT mg) by oral route once daily as needed Flovent HFA 01/17 Active Aerosol 110mcg/Ac 1unit ii Khadra /2017 t s inhalation CLAUDETTE Cloud twice daily Ventolin HFA 12/18 Active Aerosol 108(90Bas 8gm inhale 2 /2017 e) puffs by Maciej Valentino MD mcg/Act [...] /0000 sprays into each nostril once daily Wellbutrin XL Active Tablets ER 150mg one tablet Unknown /0000 24HR (150 mg) by mouth every morning Advair HFA Hx Aerosol 115-21mcg 2 puffs Unknown /0000 /Act twice daily - 01/17 Yisel Hx Tablets 180mg 2 tab Unknown Allergy /0000 everyday as - needed 01/17 Medications Administered in Office Medication Date Status Form Strength Qnty SIG Indications Ordering Provider Allergy 01/17/ Administered Injection Christopher Injection 2 2018 Maciej Valentino MD Or More Allergy 12/27/ Administered Injection Christopher Injection 2 2017 Maciej Valentino MD Or More Immunizations Description No Information Available Vital Signs Date Vital Result Comment 02/21/2018 1:24pm Height 65 inches 5'5" Weight 204.00 lb BMI (Body Mass Index) 33.9 kg/m2 Respiratory Rate 16 /min 01/17/2018 10:11am BP Systolic 120 mmHg BP Diastolic 93 mmHg Height 65 inches 5'5" Weight 204.00 lb BMI (Body Mass Index) 33.9 kg/m2 Heart Rate 75 /min Respiratory Rate 18 /min Body Temperature 98.0 F O2 % BldC Oximetry 98 % 12/20/2017 9:15am BP Systolic 138 mmHg BP Diastolic 96 mmHg Height 65 inches 5'5" Weight 204.50 lb BMI (Body Mass Index) 34.0 kg/m2 Heart Rate 72 /min Respiratory Rate 18 /min Body Temperature 98.3 F O2 % BldC Oximetry 97 % 12/18/2017 3:10pm BP Systolic 108 mmHg BP Diastolic 68 mmHg Height 64 inches 5'4" Weight 204.00 lb BMI (Body Mass Index) 35.0 kg/m2 Heart Rate 96 /min Respiratory Rate 18 /min Body Temperature 96.3 F O2 % BldC Oximetry 96 % Results Test Date Facility Test Result H/L Range Note Order 12/18/2017 [facility] Intradermal <pending> Drug/Venom Procedures Date Code Description Status 01/23/2018 14528 Nitric Oxide Gas Determination Completed 01/23/2018 36668 Bronchodilation Responsiveness Spirometry Pre/Post Completed Bronchodil Adm 01/17/2018 67238 Allergy Injection 2 Or More Completed 01/17/2018 75229 Nitric Oxide Gas Determination Completed 01/17/2018 19313 Bronchodilation Responsiveness Spirometry Pre/Post Completed Bronchodil Adm 12/27/2017 23320 Allergy Injection 2 Or More Completed 12/25/2017 38789 Allergy Antigens Single Or Multiple Completed 12/20/2017 79249 Allergy Tests Percutaneous W/ Allergenic Extracts Completed 12/20/2017 55346 Allergy Tests Percutaneous W/ Allergenic Extracts Completed 12/18/2017 76913 Allergy Testing Any Combination Percutaneous W/Venom Completed Encounters Type Date Location Provider Dx Diagnosis Office Visit 12/20/2017 9:00a [place] Cloud NP J30.1 Allergic rhinitis due to pollen J30.89 Other allergic rhinitis J45.40 Moderate persistent asthma, uncomplicated Office Visit 12/18/2017 3:[place]p [place] Valent[place], Z88.0 Allergy status to MD pagan Plan of Treatment 02/21/2018 - KATHIA Chau45.40 Moderate persistent asthma, uncomplicatedFollow up:6 months, PFT and NIOX [id number] Allergic rhinitis due to htbrfjD69.89 Other allergic rhinitis
--- OUTSIDE RECORDS SUMMARY | 2018-03-11 16:19 | XMS REPORT | Continuity of Care Document ---
:1990 External Reference #:[id number] Author Name Tony Valentino MD Address [address] [place] [address] Care Team Providers Name Role Phone Lola Thurman NP Care Team Information Cafeteria Aide Unavailable Madison Carreno MD Primary Care Physician Unavailable Payers Type Date Identification Numbers Payment Provider Subscriber Policy Number: [id number] [facility] Melus Marisol Molina PayID: [id number] [address] [address] [place] [address] Advance Directives Description No Information Available Problems [...] 1 Khadra 24HR s tablet (5 Cloud, SOCIAL WORKER [employer]IAT[employer]ARE mg) by oral route once daily as needed Flovent HFA 01/17 Active Aerosol 110mcg/Ac 1unit ii Khadra t s inhalation Cloud, SOCIAL WORKER [employer]IATIVE CARE twice daily Ventolin HFA 12/18 Active Aerosol [...] Allergy 12/27/ Administered Injection Christopher Injection 2 2018 Maciej Valentino MD Or More Immunizations Description No Information Available Vital Signs Date Vital Result Comment 02/21/2018 1:24pm Height 65 inches 5'5" Weight 204.00 lb BMI (Body Mass Index) 33.9 kg/m2 Heart Rate 85 /min Respiratory Rate 16 /min Body Temperature 96.4 F O2 % BldC Oximetry 98 % 01/17/2018 10:11am BP Systolic 120 mmHg BP [...] Facility Test Result H/L Range Note Order 02/21/2018 [facility] Nitric Oxide <pending> PFT Supplies <pending> PFT With Bronchodilator <pending> Order 12/18/2017 [facility] Intradermal Drug/Venom <pending> Procedures Date Code Description Status 02/21/2018 55478 Nitric Oxide Gas Determination Completed 02/21/2018 02943 Bronchodilation Responsiveness Spirometry Pre/Post Completed Bronchodil Adm 01/23/2018 08860 Nitric Oxide Gas Determination Completed 01/23/2018 59205 Bronchodilation Responsiveness Spirometry Pre/Post Completed Bronchodil Adm 01/17/2018 36221 Allergy Injection 2 Or More Completed 01/17/2018 85136 Nitric Oxide Gas Determination Completed 01/17/2018 03757 Bronchodilation Responsiveness Spirometry Pre/Post Completed Bronchodil Adm 12/27/2017 75614 Allergy Injection 2 Or More Completed 12/25/2017 63718 Allergy Antigens Single Or Multiple Completed 12/20/2017 37491 Allergy Tests Percutaneous W/ Allergenic Extracts Completed 12/20/2017 37772 Allergy Tests Percutaneous W/ Allergenic Extracts Completed 12/18/2017 54620 Allergy Testing Any Combination Percutaneous W/Venom Completed Encounters Type Date Location Provider Dx Diagnosis Office Visit 02/21/2018 CINTHYA [place] J45.40 Moderate persistent 1:00p asthma, uncomplicated J30.1 Allergic rhinitis due to pollen J30.89 Other allergic rhinitis Office Visit 12/20/2017 9:00a [place] Cloud NP J30.1 Allergic rhinitis due to pollen J30.89 Other allergic rhinitis J45.40 Moderate persistent asthma, uncomplicated Office Visit 12/18/2017 3:00p [place] Tony Valentino, Z88.0 Allergy status to MD pagan Plan of Treatment Future Appointment(s):02/24/2018 8:35 am - Injection 1 at [email or web address]/20/2018 9: 00 am - CINTHYA Chau at [place]
[2018-03-11 16:21] VITALS: BP 107/68
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
== END 2018-03-11 16:40 | disposition home or self-care (01) ==
LOC: UCEAST 16:08
DX: S41.131A Puncture wound without foreign body of right upper arm, initial encounter (principal); W50.3XXA Accidental bite by another person, initial encounter; Y93.G1 Activity, food preparation and clean up; Y92.199 Unspecified place in other specified residential institution as the place of occurrence of the external cause; F32.9 Major depressive disorder, single episode, unspecified; Z88.1 Allergy status to other antibiotic agents; Z88.5 Allergy status to narcotic agent; Z88.0 Allergy status to penicillin; Z88.2 Allergy status to sulfonamides; F17.210 Nicotine dependence, cigarettes, uncomplicated
CPT/HCPCS: 99212; G0463

== ENCOUNTER 2018-04-20 15:29 | Emergency (ER) | payer BC, OTHER ==
--- OUTSIDE RECORDS SUMMARY | 2018-04-20 15:58 | XMS REPORT | Continuity of Care Document ---
:1990 External Reference #:[id number] Author Name Tony Valentino MD Address [address] [place] [address] Care Team Providers Name Role Phone Lola Thurman NP Care Team Information Manufacturing Maintenance Technician Unavailable Madison Carreno MD Primary Care Physician Unavailable Payers Type Date Identification Numbers Payment Provider Subscriber Policy Number: [id number] [facility] Melus Marisol Molina PayID: [id number] [address] [address] [place] [address] Advance Directives Description No Information Available Problems [...] 1 Khadra 24HR s tablet (5 Cloud, ADMINISTRATIVE OPERATIONS COORDINATOR mg) by oral route once daily as needed Flovent HFA 01/17 Active Aerosol 110mcg/Ac 1unit ii Khadra t s inhalation Cloud, ADMINISTRATIVE OPERATIONS COORDINATOR twice daily Ventolin HFA 12/18 Active Aerosol [...] Test Result H/L Range Note Order 12/18/2017 [facility] Intradermal <pending> Drug/Venom Procedures Date Code Description Status 02/21/2018 57137 Nitric Oxide Gas Determination Completed 02/21/2018 84005 Nitric Oxide Gas Determination Completed 02/21/2018 68281 Bronchodilation Responsiveness Spirometry Pre/Post Completed Bronchodil Adm 02/21/2018 84197 Bronchodilation Responsiveness Spirometry Pre/Post Completed Bronchodil Adm 01/23/2018 35332 Nitric Oxide Gas Determination Completed 01/23/2018 62847 Bronchodilation Responsiveness Spirometry Pre/Post Completed Bronchodil Adm 01/17/2018 59570 Allergy Injection 2 Or More Completed 01/17/2018 29127 Nitric Oxide Gas Determination Completed 01/17/2018 62280 Bronchodilation Responsiveness Spirometry Pre/Post Completed Bronchodil Adm 12/27/2017 66013 Allergy Injection 2 Or More Completed 12/25/2017 09897 Allergy Antigens Single Or Multiple Completed 12/20/2017 64153 Allergy Tests Percutaneous W/ Allergenic Extracts Completed 12/20/2017 20131 Allergy Tests Percutaneous W/ Allergenic Extracts Completed 12/18/2017 01398 Allergy Testing Any Combination Percutaneous W/Venom Completed Encounters Type Date Location Provider Dx Diagnosis Office Visit 02/21/2018 CINTHYA [place] J45.40 Moderate persistent 1:00p asthma, uncomplicated J30.1 Allergic rhinitis due to pollen J30.89 Other allergic rhinitis Office Visit 12/20/2017 9:00a [place] Cloud NP J30.1 Allergic rhinitis due to pollen J30.89 Other allergic rhinitis J45.40 Moderate persistent asthma, uncomplicated Office Visit 12/18/2017 3:00p [place] Tony Valentino, Z88.0 Allergy status to penicillin Plan of Treatment Future Appointment(s):08/20/2018 9:00 am - CINTHYA Chau at [place]
[2018-04-20 16:06] VITALS: BP 113/66
[2018-04-20] MEDS ORDERED: Albuterol/Ipratropium NEB.SOL* Albuterol 2.5 MG/Ipratropium 0.5 MG 3 ML INH ONE (16:31)
[2018-04-20] MEDS ORDERED: predniSONE TAB* 20 MG PO ONE (16:32)
--- NOTE | 2018-04-20 16:38 | UC ---
Respiratory Complaint HPI - HPI Summary HPI Summary: has asthma, it started to "act up" over past week, does not feel sick but glands in back of neck are tender, no skin wound, ear pain or head pain - History of Current Complaint Chief Complaint: UCGeneralIllness Stated Complaint: SWOLLEN LYMPH NODES Time Seen by Provider: 04/20/18 16:24 Hx Obtained From: Patient Hx Last Menstrual Period: just finished ?: No Onset/Duration: Gradual Onset Severity Initially: Mild Severity Currently: Moderate Pain Intensity: 5 Character: Cough: Nonproductive Aggravating Factors: Exertion, Deep Breaths, Recumbent Position Alleviating Factors: Bronchodilator Associated Signs And Symptoms: Positive: Wheezing - Allergies/Home Medications Allergies/Adverse Reactions: Allergies Allergy/AdvReac Type Severity Reaction Status Date / Time azithromycin Allergy Hives/Diff. Verified 04/20/18 16:07 Breathing/I tching oxycodone [From Percocet] Allergy Anaphylatic Verified 04/20/18 16:07 Shock Sulfa (Sulfonamide Allergy Rash Verified 04/20/18 16:07 Antibiotics) amoxicillin AdvReac Vomiting Verified 04/20/18 16:07 nitrofurantoin AdvReac Vomiting Verified 04/20/18 16:07 [From Macrobid] ondansetron [From Zofran] AdvReac Hallucinati Verified 04/20/18 16:07 ons Penicillins AdvReac Vomiting Verified 04/20/18 16:07 promethazine [From Phenergan] AdvReac Hallucinati Verified 04/20/18 16:07 ons Home Medications: Home Medications DULoxetine DR CAP* [Cymbalta CAP*] 20 mg PO DAILY 04/20/18 [History Confirmed ] PMH/Surg Hx/FS Hx/Imm Hx Previously Healthy: Yes Respiratory History: Asthma Psychological History: Anxiety, Depression - Surgical History Surgical History: Yes Surgery Procedure, Year, and Place: LEFT KNEE SCOPING 2007 [place]. tonsillectomy January 2017 - Family History Known Family History: Positive: None Negative: Cardiac Disease, Hypertension, Diabetes Family History: no cardiovascular issues reported in family lineage - Social History Occupation: Employed Full-time Lives: With Family Alcohol Use: Rare Substance Use Type: None Smoking Status (MU): Light Every Day Tobacco Smoker Type: Cigarettes Amount Used/How Often: <1/4 PPD Cessation Counseling: Patient Advised to Stop - Immunization History Most Recent Tetanus Shot: unknown Review of Systems All Other Systems Reviewed And Are Negative: Yes Constitutional: Positive: Negative Skin: Positive: Negative ENT: Positive: Negative Respiratory: Positive: Cough Cardiovascular: Positive: Negative Neurovascular: Positive: Negative Musculoskeletal: Positive: Negative Neurological: Positive: Negative Psychological: Positive: Negative Is Patient Immunocompromised?: No Physical Exam Triage Information Reviewed: Yes Appearance: Well-Appearing, No Pain Distress, Well-Nourished Vital Signs: Initial Vital Signs Temp 98 F 04/20/18 16:03 Pulse 57 04/20/18 16:03 Resp 15 04/20/18 16:03 BP 113/66 04/20/18 16:03 Pulse Ox 99 04/20/18 16:03 Vital Signs Reviewed: Yes Eyes: Positive: Conjunctiva Clear ENT: Positive: Pharynx normal, TMs normal. Negative: Pharyngeal erythema, Nasal congestion, Sinus tenderness Neck: Positive: Tenderness @ - blateral posterior cervical nodes, slighlty enlarged Respiratory: Positive: Rhonchi, Wheezing Cardiovascular Exam: Normal Cardiovascular: Positive: RRR Neurological Exam: Normal Neurological: Positive: Alert Psychological Exam: Normal Skin Exam: Normal Skin: Negative: Rashes UC Diagnostic Evaluation - Laboratory O2 Sat by Pulse Oximetry: 99 Respiratory Course/Dx - Differential Dx/Diagnosis Differential Diagnosis/HQI/PQRI: Asthma, Bronchitis, Lower Resp Infection, Sinusitis Provider Diagnoses: asthma. Upper respiratory illness Discharge - Sign-Out/Discharge Documenting (check all that apply): Patient Departure All imaging exams completed and their final reports reviewed: No Studies - Discharge Plan Condition: Stable Disposition: HOME Prescriptions: predniSONE TAB* [Deltasone 20 MG TAB*] 40 mg PO DAILY #4 tab Referrals: Madison Carreno MD [Primary Care Provider] - 2 Days (recheck) Additional Instructions: use your albuterol inhaler as directed and continue current meds start prednisone prescription tomorrow Report to ER if difficult breathing occurs - Billing Disposition and Condition Condition: STABLE Disposition: Home - Attestation Statements Provider Attestation: I was available for consult. This patient was seen by the DANNI. The patient was not presented to, seen by, or examined by me. -Candie
== END 2018-04-20 17:25 | disposition home or self-care (01) ==
LOC: UCEAST 15:29
DX: J45.909 Unspecified asthma, uncomplicated (principal); J06.9 Acute upper respiratory infection, unspecified; F17.210 Nicotine dependence, cigarettes, uncomplicated; Z88.1 Allergy status to other antibiotic agents; Z88.5 Allergy status to narcotic agent; Z88.2 Allergy status to sulfonamides; Z88.0 Allergy status to penicillin
CPT/HCPCS: 99212; A9270-GY; G0463; J7512

== ENCOUNTER 2018-04-25 10:36 | Emergency (ER) | payer SELFPAY ==
[2018-04-25 11:32] VITALS: BP 137/88
--- NOTE | 2018-04-25 11:47 | UC ---
Throat Pain/Nasal Kevyn HPI - HPI Summary HPI Summary: 28-year-old woman comes in with a chief complaint of right coating in her throat and mouth. It's been going on the last couple days she has been on inhalers and steroids for her asthma exacerbation. She believes she has thrush. No fevers or chills no runny nose. Patient has a follow-up scheduled with her primary care doctor on April 28, 2018. - History of Current Complaint Chief Complaint: UCGeneralIllness Stated Complaint: SORE THROAT Time Seen by Provider: 04/25/18 11:38 Hx Last Menstrual Period: 1 week ago Pain Intensity: 0 - Allergies/Home Medications Allergies/Adverse Reactions: Allergies Allergy/AdvReac Type Severity Reaction Status Date / Time azithromycin Allergy Hives/Diff. Verified 04/25/18 11:32 Breathing/I tching oxycodone [From Percocet] Allergy Anaphylatic Verified 04/25/18 11:32 Shock Sulfa (Sulfonamide Allergy Rash Verified 04/25/18 11:32 Antibiotics) amoxicillin AdvReac Vomiting Verified 04/25/18 11:32 nitrofurantoin AdvReac Vomiting Verified 04/25/18 11:32 [From Macrobid] ondansetron [From Zofran] AdvReac Hallucinati Verified 04/25/18 11:32 ons Penicillins AdvReac Vomiting Verified 04/25/18 11:32 promethazine [From Phenergan] AdvReac Hallucinati Verified 04/25/18 11:32 ons PMH/Surg Hx/FS Hx/Imm Hx Respiratory History: Asthma - Surgical History Surgical History: Yes Surgery Procedure, Year, and Place: LEFT KNEE SCOPING 2007 [place]. tonsillectomy January 2017 - Family History Known Family History: Positive: None Negative: Cardiac Disease, Hypertension, Diabetes Family History: no cardiovascular issues reported in family lineage - Social History Alcohol Use: Rare Substance Use Type: None Smoking Status (MU): Light Every Day Tobacco Smoker Type: Cigarettes Amount Used/How Often: <1/4 PPD - Immunization History Most Recent Tetanus Shot: unknown Review of Systems All Other Systems Reviewed And Are Negative: Yes Constitutional: Positive: Negative Skin: Positive: Negative Eyes: Positive: Negative ENT: Positive: Sore Throat Respiratory: Positive: Negative Cardiovascular: Positive: Negative Gastrointestinal: Positive: Negative Motor: Positive: Negative Neurovascular: Positive: Negative Musculoskeletal: Positive: Negative Neurological: Positive: Negative Psychological: Positive: Negative Is Patient Immunocompromised?: No Physical Exam Triage Information Reviewed: Yes Appearance: Well-Appearing, No Pain Distress, Well-Nourished Vital Signs: Initial Vital Signs Temp 97.9 F 04/25/18 11:28 Pulse 78 04/25/18 11:28 Resp 18 04/25/18 11:28 BP 137/88 04/25/18 11:28 Pulse Ox 98 04/25/18 11:28 Vital Signs Reviewed: Yes Eye Exam: Normal Eyes: Positive: Conjunctiva Clear ENT: Positive: Pharyngeal erythema - WHITE PLAQUES ON TONGUE AND CHEEKS, TMs normal. Negative: Nasal congestion Neck exam: Normal Neck: Positive: Supple Respiratory Exam: Normal Respiratory: Positive: Lungs clear, Normal breath sounds, No respiratory distress Cardiovascular: Positive: RRR Musculoskeletal Exam: Normal Musculoskeletal: Positive: Strength Intact, ROM Intact Neurological Exam: Normal Neurological: Positive: Alert, Muscle Tone Normal Psychological Exam: Normal Psychological: Positive: Age Appropriate Behavior Skin Exam: Normal Throat Pain/Nasal Course/Dx - Differential Dx/Diagnosis Provider Diagnoses: ORAL THRUSH Discharge - Sign-Out/Discharge Documenting (check all that apply): Patient Departure All imaging exams completed and their final reports reviewed: No Studies - Discharge Plan Condition: Stable Disposition: HOME Prescriptions: Nystatin SUSPENSION ORAL SYR* 500,000 units PO QID #140 ml Patient Education Materials: Oral Candidiasis (ED) Referrals: Madison Carreno MD [Primary Care Provider] - Additional Instructions: FOLLOW UP WITH YOUR DOCTOR ON 04/28/18 SCHEDULED. GET RECHECKED FOR ANY WORSENING OF YOUR CONDITION OR QUESTIONS OR CONCERNS. - Billing Disposition and Condition Condition: STABLE Disposition: Home
== END 2018-04-25 11:50 | disposition home or self-care (01) ==
LOC: UCEAST 10:36
DX: B37.0 Candidal stomatitis (principal); Z88.1 Allergy status to other antibiotic agents; Z88.0 Allergy status to penicillin; Z88.8 Allergy status to other drugs, medicaments and biological substances; F17.210 Nicotine dependence, cigarettes, uncomplicated
CPT/HCPCS: 99212; G0463

== ENCOUNTER 2018-07-18 09:06 | Emergency (ER) | payer SELFPAY ==
[2018-07-18 09:43] VITALS: BP 111/71
[2018-07-18 10:40] LABS: Influenza A Molecular POSITIVE (Negative)
--- NOTE | 2018-07-18 10:58 | UC ---
FLU HPI - HPI Summary HPI Summary: 28 y/o female presets to the urgent care c/o fever, body aches, TOMAS, dry cough since Saturday07/16/2018. Pt has nausea yesterday due to cough, Pt has been taken Alkaseltzer cold and flu to alleviate symptoms. Pain is 4/10. Pt denies SOB, chest pain, abdominal pain, V/D. - History of Current Complaint Chief Complaint: UCGeneralIllness Stated Complaint: POSS FLU Time Seen by Provider: 07/18/18 10:51 Hx Obtained From: Patient Hx Last Menstrual Period: 07/04/18 ?: No Onset/Duration: Gradual Onset, Lasting Days - 2 days, Still Present, Worse Since - today Severity Currently: Mild Severity Initially: Moderate Pain Intensity: 4 Pain Scale Used: 0-10 Numeric Associated Signs & Symptoms: Positive: Fever, Myalgia, Cough - dry, Sore Throat , Nasal Congestion - clear Related Hx: Possible Flu/Infectious Exposure - Risk Factors Influenza Risk Factors: Negative - Allergy/Home Medications Allergies/Adverse Reactions: Allergies Allergy/AdvReac Type Severity Reaction Status Date / Time azithromycin Allergy Hives/Diff. Verified 07/18/18 09:43 Breathing/I tching oxycodone [From Percocet] Allergy Anaphylatic Verified 07/18/18 09:43 Shock Sulfa (Sulfonamide Allergy Rash Verified 07/18/18 09:43 Antibiotics) amoxicillin AdvReac Vomiting Verified 07/18/18 09:43 nitrofurantoin AdvReac Vomiting Verified 07/18/18 09:43 [From Macrobid] ondansetron [From Zofran] AdvReac Hallucinati Verified 07/18/18 09:43 ons Penicillins AdvReac Vomiting Verified 07/18/18 09:43 promethazine [From Phenergan] AdvReac Hallucinati Verified 07/18/18 09:43 ons Home Medications: Home Medications Sertraline* [Zoloft*] 200 mg PO DAILY 07/18/18 [History Confirmed 07/18/18] PMH/Surg Hx/FS Hx/Imm Hx Previously Healthy: Yes Respiratory History: Asthma - Surgical History Surgical History: Yes Surgery Procedure, Year, and Place: LEFT KNEE SCOPING 2007 [place]. tonsillectomy January 2017 - Family History Known Family History: Positive: None Negative: Cardiac Disease, Hypertension, Diabetes Family History: no cardiovascular issues reported in family lineage - Social History Occupation: Employed Full-time Lives: With Family Alcohol Use: Rare Substance Use Type: None Smoking Status (MU): Light Every Day Tobacco Smoker Type: Cigarettes Amount Used/How Often: <1/4 PPD - Immunization History Most Recent Tetanus Shot: unknown Review of Systems All Other Systems Reviewed And Are Negative: Yes Constitutional: Positive: Fever, Chills, Fatigue, Other - body aches Skin: Positive: Negative Eyes: Positive: Negative ENT: Positive: Sore Throat, Nasal Discharge - clear, Sinus Congestion Respiratory: Positive: Cough - dry Cardiovascular: Positive: Negative Gastrointestinal: Positive: Negative Genitourinary: Positive: Negative Motor: Positive: Negative Neurovascular: Positive: Negative Musculoskeletal: Positive: Myalgia Neurological: Positive: Headache Psychological: Positive: Negative Is Patient Immunocompromised?: No Physical Exam - Summary Physical Exam Summary: VITAL SIGNS: Reviewed. GENERAL: Patient is a well developed and nourished female who is sitting comfortable in the examining table. Patient is not in any acute respiratory distress. HEAD AND FACE: No signs of trauma. No ecchymosis, hematomas or skull depressions. No sinus tenderness. EYES: PERRLA, EOMI x 2, No injected conjunctiva, no nystagmus. No photophobia. EARS: Hearing grossly intact. Ear canals and tympanic membranes are within normal limits. Nose: edematous and erythematous nasal mucosa w/ clear nasal discharge. MOUTH: Positive no erythema, no tonsillar enlargement. Uvula in midline. NECK: Supple, trachea is midline, Positive anterior cervical lymphadenopathy, no JVD, no carotid bruit, no c-spine tenderness, neck with full ROM. No meningeal signs, no Kernig's or brudzinskis signs. CHEST: Symmetric, no tenderness at palpation LUNGS: Clear to auscultation bilaterally. No wheezing or crackles. CVS: Regular rate and rhythm, S1 and S2 present, no murmurs or gallops appreciated. ABDOMEN: Soft, non-tender. No signs of distention. No rebound no guarding, and no masses palpated. Bowel sounds are normal. EXTREMITIES: FROM in all major joints, no edema, no cyanosis or clubbing. NEURO: Alert and oriented x 3. No acute neurological deficits. Speech is normal and follows commands. SKIN: Dry and warm Triage Information Reviewed: Yes Vital Signs: Initial Vital Signs Temp 98.8 F 07/18/18 09:41 Pulse 98 07/18/18 09:41 Resp 18 07/18/18 09:41 BP 111/71 07/18/18 09:41 Pulse Ox 99 07/18/18 09:41 Flu Course/Dx - Course Course Of Treatment: 28 y/o female presets to the urgent care c/o fever, body aches, TOMAS, dry cough since Saturday07/16/2018. Pt has nausea yesterday due to cough, Pt has been taken Alkaseltzer cold and flu to alleviate symptoms. Pain is 4/10. Pt denies SOB, chest pain, abdominal pain, V/D.Hx obtained.Pt with URI on examination. Influenza A&B ordered: result: Influenza A positive.Pt Rx Tamiflu and ibuprofen PO to alleviates symptoms. Advised on hand washing and wear a mask to avoid spreading. Pt advised to rest, increase fluid intake, eat well and avoid strenuous exercise. If symptoms do not improve or worsen advised to return to the urgent care or f/u with her PCP for further evaluation and treatment. Pt understood and agreed - Differential Dx/Diagnosis Differential Diagnosis/HQI/PQRI: Bronchitis, Influenza, Pneumonia, Upper Respiratory Infection Provider Diagnosis: Influenza A Discharge - Sign-Out/Discharge Documenting (check all that apply): Patient Departure - D/c home All imaging exams completed and their final reports reviewed: No Studies - Discharge Plan Condition: Stable Disposition: HOME Prescriptions: Oseltamivir CAP* [Tamiflu CAP*] 75 mg PO BID #10 cap Patient Education Materials: Influenza (ED) Forms: *Work Release Referrals: Madison Carreno MD [Primary Care Provider] - 2 Days Additional Instructions: 1- Please take the full course of the antiviral to avoid resistance. Encourage hand washing and wear a mask to avoid spreading. 2-Please continue taking Ibuprofen PO q6-8hrs prn as instructed after meals to alleviate fever, and sore throat. Increase fluid intake, eat well, rest and avoid strenuous exercise 3-If symptoms do not improve or worsen please return to the urgent care or f/u with your PCP in 2 days for further evaluation and treatment. - Billing Disposition and Condition Condition: STABLE Disposition: Home
== END 2018-07-18 11:12 | disposition home or self-care (01) ==
LOC: UCEAST 09:06
DX: J10.1 Influenza due to other identified influenza virus with other respiratory manifestations (principal); Z88.1 Allergy status to other antibiotic agents; Z88.5 Allergy status to narcotic agent; Z88.0 Allergy status to penicillin; Z88.2 Allergy status to sulfonamides; Z88.8 Allergy status to other drugs, medicaments and biological substances; F17.210 Nicotine dependence, cigarettes, uncomplicated
CPT/HCPCS: 99212; G0463

== ENCOUNTER 2018-07-31 18:46 | Emergency (ER) | payer SELFPAY ==
[2018-07-31 19:17] VITALS: BP 129/80
[2018-07-31] MEDS ORDERED: Acetaminophen TAB* 325 MG PO ONE (20:30)
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
== END 2018-07-31 21:50 | disposition home or self-care (01) ==
LOC: UCEAST 18:46
DX: S16.1XXA Strain of muscle, fascia and tendon at neck level, initial encounter (principal); R51 Headache; F17.210 Nicotine dependence, cigarettes, uncomplicated; J45.909 Unspecified asthma, uncomplicated; H53.149 Visual discomfort, unspecified; Z88.0 Allergy status to penicillin; Z88.1 Allergy status to other antibiotic agents; Z88.2 Allergy status to sulfonamides; Z88.5 Allergy status to narcotic agent; Z88.8 Allergy status to other drugs, medicaments and biological substances; V89.2XXA Person injured in unspecified motor-vehicle accident, traffic, initial encounter; Y92.9 Unspecified place or not applicable
CPT/HCPCS: 70450; 72125; 99212; A9270-GY; G0463